=== PATIENT | female | born 1955 | race Caucasian/White ===

== ENCOUNTER → 2016-06-29 | Outpatient (CLI) | payer MEDICAID ==
[2016-06-29 09:39] LABS: CH 26.8; CHCM 31.4; HCT 33.6 % (34.0-46.0); HDW 2.95; HGB 10.4 gm/dL (11.4-16.0); Hypochromasia Slight; MCH 26.5 pg (25.0-35.0); MCHC 30.9 g/dL (31.0-37.0); MCV 85.7 fL (80.0-100.0); Mean Platelet Volume 8.7; RBC 3.92 m/uL (3.80-5.40); RDW 15.4 % (11.5-15.5); WBC 3.8 k/uL (3.8-10.6)
[2016-06-29 11:03] LABS: ALT 63 U/L (9-52); AST 49 U/L (14-36); Alkaline Phosphatase 192 U/L (38-126); Anion Gap 12 mmol/L; Blood Urea Nitrogen 19 mg/dL (7-17); Calcium 9.4 mg/dL (8.4-10.2); Carbon Dioxide 27 mmol/L (22-30); Chloride 106 mmol/L (98-107); Glucose 76 mg/dL (74-99); Non-African American GFR(MDRD) >60 (>60 ml/min/1.73 sqM); Potassium 4.2 mmol/L (3.5-5.1); Sodium 145 mmol/L (137-145); Total Bilirubin 0.6 mg/dL (0.2-1.3); Total Protein 8.1 g/dL (6.3-8.2)
== END | disposition home or self-care (01) ==
LOC: LABWHC1 09:17
PROVIDERS: ATTEND Physician Assistant
DX: K74.60 Unspecified cirrhosis of liver (principal); D64.9 Anemia, unspecified; R53.83 Other fatigue
CPT/HCPCS: 36415; 80053; 84439; 84443; 85027

== ENCOUNTER → 2016-09-29 | Outpatient (CLI) | payer MEDICAID ==
[2016-09-29 11:30] LABS: CH 27.7; CHCM 30.9; HCT 38.2 % (34.0-46.0); HDW 2.89; HGB 11.7 gm/dL (11.4-16.0); Hypochromasia Moderate; MCH 27.6 pg (25.0-35.0); MCHC 30.7 g/dL (31.0-37.0); Mean Platelet Volume 7.5; RBC 4.25 m/uL (3.80-5.40); RDW 15.4 % (11.5-15.5)
[2016-09-29 11:45] LABS: INR 1.2 (<1.1); Prothrombin Time 11.7 sec (9.0-12.0)
[2016-09-29 12:01] LABS: ALT 74 U/L (9-52); AST 77 U/L (14-36); Alkaline Phosphatase 259 U/L (38-126); Anion Gap 14 mmol/L; Blood Urea Nitrogen 16 mg/dL (7-17); Calcium 9.8 mg/dL (8.4-10.2); Carbon Dioxide 22 mmol/L (22-30); Chloride 105 mmol/L (98-107); Glucose 114 mg/dL (74-99); Non-African American GFR(MDRD) 50 (>60 ml/min/1.73 sqM); Potassium 4.5 mmol/L (3.5-5.1); Sodium 141 mmol/L (137-145); Total Bilirubin 1.2 mg/dL (0.2-1.3)
== END | disposition home or self-care (01) ==
LOC: LABWHC1 10:35
PROVIDERS: ATTEND Internal Medicine Gastroenterology
DX: K74.60 Unspecified cirrhosis of liver (principal)
CPT/HCPCS: 36415; 80053; 82105; 85027; 85610

== ENCOUNTER 2016-11-06 07:36 | Day surgery (SDC) | payer MEDICAID ==
[2016-11-02 11:17] VITALS: BMI 30.5
[~2016-11-06 07:36] MED LIST: LACTATED RINGERS 1,000 ML IV SCH
[2016-11-06] MEDS: FLURBIPROFEN 0.03% OPHTH DROPS 2.5 ML BTL OP ONE ×4 (08:00→08:33)
[2016-11-06 08:13] VITALS: TEMP 97.7
[2016-11-06] MEDS: PHENYLEPHRINE 10% OPHTH DROPS 5 ML BTL OP ONE ×3 (08:17→08:36)
[2016-11-06] MEDS: CYCLOPENTOLATE 1% OPHTH SOLN 2 ML BTL OP ONE ×3 (08:21→08:39)
[2016-11-06] MEDS ORDERED: PROPOFOL 10 MG/ML 20 ML VIAL IV ONE (09:03)
[2016-11-06] MEDS ORDERED: EPINEPHrine (PF) 0.5 ML in BALANCED SALT IRRIG SOLN COMB2 500 ML IRRIGATION ONE ×4 (09:08)
[2016-11-06] MEDS ORDERED: BALANCED SALT IRRIG SOLN COMB2 15 ML IRRIG.SOLN IRRIGATION ONE (09:08)
[2016-11-06] MEDS ORDERED: HYALURONATE SODIUM INTRAOCULAR 1 EACH SYRINGE (10MG/ML) INTRAOCULA ONE ×2 (09:08)
--- NOTE | 2016-11-06 09:28 | P.OP ---
Date of Procedure: 11/06/16 Preoperative Diagnosis: Postoperative Diagnosis: Procedure(s) Performed: PREOPERATIVE DIAGNOSIS: Cataract, right eye. POSTOPERATIVE DIAGNOSIS: Cataract, right eye. OPERATION: Phacoemulsification cataract, right eye. DESCRIPTION OF PROCEDURE: The patient was taken to the preoperative holding area. Intravenous Propofol was given so as to bring about adequate sedation. The following mixture was given for local anesthesia: 5 mL of 2% lidocaine, 5 mL of 0.75% Marcaine, and 1 mL of Wydase. Approximately 4 mL was injected in the retrobulbar space of the surgical eye. Additional 1 mL was then directed to the temporal area of the surgical eye. This was performed to allow adequate neurological block of the facial muscles. The patient was revived and then taken into the operative room. The patient was prepped and draped in the usual sterile manner for the operative eye. A lid speculum was put into position. The conjunctiva was resected back from the limbus in the 12 o'clock position. Bleeding was controlled with electrocautery. A #69 blade was then used and a half-thickness scleral incision approximately 1-mm posterior to the limbus was made on bare sclera. This was shelved in the clear cornea using a crescent knife. Next a 15-degree blade was used to make a stab incision at the 3 o' clock position at the corneolimbal interface. Keratome blade was then used and the superior wound was extended into the anterior chamber. Viscoelastic was injected into the anterior chamber and to maintain its form. Next, a cystotome was used and a continuous anterior capsulotomy was made without difficulty. Hydrodissection using a blunt cannula and BSS was performed. Phaco probe was then employed and a groove extending from 12 to 6 o'clock in the lens was created. A Freddie wand was used through the stab incision so as to perform a divide and conquer technique. Next an irrigation aspiration probe was utilized and any residual cortex was removed from the eye. Again, viscoelastic was injected into the anterior chamber. An Arnie posterior chamber lens implant was placed in the cartridge and injected into the anterior chamber without difficulty. The HighTower Advisorsey hook was utilized to spin the lens into position and this was again performed without any difficulty. The irrigation and aspiration probe was again employed and any residual viscoelastic was removed from the eye. Then BSS was injected into the limbal stab incision and the anterior chamber re-inflated. The conjunctiva was reapproximated using electrocautery. One drop of 0.25% Timoptic was placed over the corneal along with TobraDex ophthalmic ointment. Two sterile patches and a Siu eye shield were taped into position. The patient was transported to the recovery room in stable condition. Implants: Pathology: none sent Condition: stable Disposition: same day Indications for Procedure: Operative Findings: Description of Procedure:
[2016-11-06 09:32] VITALS: RESP 18
[2016-11-06 09:48] VITALS: BP 148/78; PULSE 61
[2016-11-06] MEDS ORDERED: TIMOLOL 0.5% OPHTH SOLN (PF) 0.2 ML DROPERETTE OP ONE (23:00)
[2016-11-06] MEDS ORDERED: GENTAMICIN/PREDNISOL AC OPHTH OINT 3.5GM OPHTHALMIC ONE (23:00)
[2016-11-06] MEDS ORDERED: BUPIVACAINE (PF) 0.75% 5 ML, LIDOCAINE 4% (PF) 5 ML, HYALURONIDASE, HUMAN RECOMB 150 UNIT MISCELLANE ONE ×3 (23:00)
== END 2016-11-06 10:22 | disposition home or self-care (01) ==
LOC: OR 07:36
PROVIDERS: ATTEND Ophthalmology
DX: H25.11 Age-related nuclear cataract, right eye (principal); I10 Essential (primary) hypertension; M79.7 Fibromyalgia; K21.9 Gastro-esophageal reflux disease without esophagitis; G47.33 Obstructive sleep apnea (adult) (pediatric); Z88.8 Allergy status to other drugs, medicaments and biological substances; Z79.899 Other long term (current) drug therapy
CPT/HCPCS: 66984; V2632; J2001; J3470; J0171; J2704

== ENCOUNTER 2016-12-04 11:39 | Day surgery (SDC) | payer MEDICAID ==
[2016-11-30 15:58] VITALS: BMI 30.9
[~2016-12-04 11:39] MED LIST changes: +LIDOCAINE 1% 20 ML VIAL (10MG/ML) FOR IV START INTRADERMA PRN
[2016-12-04] MEDS: CYCLOPENTOLATE 1% OPHTH SOLN 2 ML BTL OP ONE ×3 (11:55→12:13)
[2016-12-04] MEDS: FLURBIPROFEN 0.03% OPHTH DROPS 2.5 ML BTL OP ONE ×3 (11:58→12:16)
[2016-12-04] MEDS: PHENYLEPHRINE 10% OPHTH DROPS 5 ML BTL OP ONE ×3 (12:01→12:19)
[2016-12-04 12:02] VITALS: RESP 16; TEMP 97.1
[2016-12-04] MEDS ORDERED: LIDOCAINE 1% INJ 10MG/ML (20 ML MDV) ONE (12:38)
[2016-12-04] MEDS ORDERED: PROPOFOL 10 MG/ML 20 ML VIAL IV ONE (12:38)
[2016-12-04] MEDS ORDERED: EPINEPHrine (PF) 0.5 ML in BALANCED SALT IRRIG SOLN COMB2 500 ML IRRIGATION ONE (12:42)
[2016-12-04] MEDS ORDERED: BALANCED SALT IRRIG SOLN COMB2 15 ML IRRIG.SOLN INTRAOCULA ONE (12:42)
[2016-12-04] MEDS ORDERED: HYALURONATE SODIUM INTRAOCULAR 1 EACH SYRINGE (10MG/ML) INTRAOCULA ONE (12:43)
[2016-12-04] MEDS ORDERED: TIMOLOL 0.5% OPHTH SOLN (PF) 0.2 ML DROPERETTE LEFT EYE ONE (12:43)
--- NOTE | 2016-12-04 12:57 | P.OP ---
Date of Procedure: 12/04/16 Preoperative Diagnosis: Postoperative Diagnosis: Procedure(s) Performed: PREOPERATIVE DIAGNOSIS: Cataract, left eye. POSTOPERATIVE DIAGNOSIS: Cataract, left eye. OPERATION: Phacoemulsification cataract, left eye. DESCRIPTION OF PROCEDURE: The patient was taken to the preoperative holding area. Intravenous Propofol was given so as to bring about adequate sedation. The following mixture was given for local anesthesia: 5 mL of 2% lidocaine, 5 mL of 0.75% Marcaine, and 1 mL of Wydase. Approximately 4 mL was injected in the retrobulbar space of the surgical eye. Additional 1 mL was then directed to the temporal area of the surgical eye. This was performed to allow adequate neurological block of the facial muscles. The patient was revived and then taken into the operative room. The patient was prepped and draped in the usual sterile manner for the operative eye. A lid speculum was put into position. The conjunctiva was resected back from the limbus in the 12 o'clock position. Bleeding was controlled with electrocautery. A #69 blade was then used and a half-thickness scleral incision approximately 1-mm posterior to the limbus was made on bare sclera. This was shelved in the clear cornea using a crescent knife. Next a 15-degree blade was used to make a stab incision at the 3 o' clock position at the corneolimbal interface. Keratome blade was then used and the superior wound was extended into the anterior chamber. Viscoelastic was injected into the anterior chamber and to maintain its form. Next, a cystotome was used and a continuous anterior capsulotomy was made without difficulty. Hydrodissection using a blunt cannula and BSS was performed. Phaco probe was then employed and a groove extending from 12 to 6 o'clock in the lens was created. A Freddie wand was used through the stab incision so as to perform a divide and conquer technique. Next an irrigation aspiration probe was utilized and any residual cortex was removed from the eye. Again, viscoelastic was injected into the anterior chamber. An Arnie posterior chamber lens implant was placed in the cartridge and injected into the anterior chamber without difficulty. The Recyclebankey hook was utilized to spin the lens into position and this was again performed without any difficulty. The irrigation and aspiration probe was again employed and any residual viscoelastic was removed from the eye. Then BSS was injected into the limbal stab incision and the anterior chamber re-inflated. The conjunctiva was reapproximated using electrocautery. One drop of 0.25% Timoptic was placed over the corneal along with TobraDex ophthalmic ointment. Two sterile patches and a Siu eye shield were taped into position. The patient was transported to the recovery room in stable condition. Implants: Pathology: none sent Condition: stable Disposition: same day Indications for Procedure: Operative Findings: Description of Procedure:
[2016-12-04 13:15] VITALS: BP 149/71; PULSE 64
[2016-12-04] MEDS ORDERED: TIMOLOL 0.5% OPHTH SOLN (PF) 0.2 ML DROPERETTE OP ONE (23:00)
[2016-12-04] MEDS ORDERED: GENTAMICIN/PREDNISOL AC OPHTH OINT 3.5GM OPHTHALMIC ONE (23:00)
[2016-12-04] MEDS ORDERED: BUPIVACAINE (PF) 0.75% 5 ML, LIDOCAINE 4% (PF) 5 ML, HYALURONIDASE, HUMAN RECOMB 150 UNIT MISCELLANE ONE ×3 (23:00)
== END 2016-12-04 13:37 | disposition home or self-care (01) ==
LOC: OR 11:39
PROVIDERS: ATTEND Ophthalmology
DX: H26.9 Unspecified cataract (principal); I10 Essential (primary) hypertension; K21.9 Gastro-esophageal reflux disease without esophagitis; Z79.899 Other long term (current) drug therapy
CPT/HCPCS: 66984; V2632; J2001 ×2; J3470; J0171; J2704

== ENCOUNTER → 2017-05-07 | Outpatient (CLI) | payer MEDICAID ==
--- NOTE | 2017-05-07 09:18 | US ---
EXAMINATION TYPE: US abdomen complete DATE OF EXAM: 05/07/2017 COMPARISON: CT abdomen June 07, 2015 CLINICAL HISTORY: R10.9 ABD PAIN. Generalized abd pain. GB removed x 5 years ago EXAM MEASUREMENTS: Liver Length: 14.7 cm CBD: 0.8 cm CHD: 0.8 cm Spleen: 14.5 cm Right Kidney: 10.8 x 4.7 x 4.7 cm Left Kidney: 10.5 x 4.1 x 4.3 cm Pancreas: Appears echogenic Liver: wnl Gallbladder: Surgically absent Evidence for sonographic Dowling's sign: neg CBD: wnl CHD: wnl Spleen: Appears enlarged Right Kidney: wnl Left Kidney: wnl Upper IVC: wnl Abd Aorta: No AAA seen The visualized liver is heterogeneous. The intrahepatic portion of the IVC and proximal abdominal ao rta are within normal limits. There is no evidence of cholelithiasis. Common bile duct is unremarka ble. The visualized portions of the pancreas are homogenous. The spleen is enlarged. Kidneys are s ymmetric and free of hydronephrosis. No renal lesions are seen. IMPRESSION: Persistent heterogeneous liver and splenomegaly. Underlying hepatocellular disease is not excluded. Correlate with biopsy results February 28, 2016. No suspicious new finding is seen to acco unt for patient's symptoms of pain. No ascites is evident.
== END | disposition home or self-care (01) ==
LOC: RADUSWWP 07:25
PROVIDERS: ATTEND Family Medicine
DX: K76.89 Other specified diseases of liver (principal); R16.1 Splenomegaly, not elsewhere classified; R10.9 Unspecified abdominal pain
CPT/HCPCS: 76700

== ENCOUNTER → 2017-07-12 | Outpatient (CLI) | payer MEDICAID ==
--- NOTE | 2017-07-12 10:22 | XR ---
EXAMINATION TYPE: XR cervical spine limited DATE OF EXAM: 07/12/2017 COMPARISON: NONE HISTORY: Pain TECHNIQUE: 3 views submitted FINDINGS: There is multilevel severe degenerative disc disease primarily involving levels C4-C7. Mult ilevel facet arthropathy noted. There is a 2 mm retrolisthesis C5 on C6. Prevertebral soft tissue structures within normal limits. Odontoid intact. IMPRESSION: 1. Multilevel severe degenerative disc disease with retrolisthesis listhesis of C5 and C6. Sella turc ica also appears somewhat prominent in size. Recommend MRI cervical spine.
--- NOTE | 2017-07-12 10:35 | US ---
EXAMINATION TYPE: US carotid duplex BILAT DATE OF EXAM: 07/12/2017 COMPARISON: NONE CLINICAL HISTORY: R09.89 Carotid Bruit. Dizziness EXAM MEASUREMENTS: RIGHT: Peak Systolic Velocity (PSV) cm/sec ----- Right CCA: 91.5 ----- Right ICA: 158.9 ----- Right ECA: 141.2 ICA/CCA ratio: 1.7 RIGHT: End Diastole cm/sec ----- Right CCA: 22.0 ----- Right ICA: 32.7 ----- Right ECA: 20.9 LEFT: Peak Systolic Velocity (PSV) cm/sec ----- Left CCA: 85.0 ----- Left ICA: 127.1 ----- Left ECA: 104.4 ICA/CCA ratio: 1.5 LEFT: End Diastole cm/sec ----- Left CCA: 22.0 ----- Left ICA: 36.5 ----- Left ECA: 20.4 VERTEBRALS (direction of flow): Right Vertebral: Antegrade Left Vertebral: Antegrade Rhythm: Normal Tortuous vessels bilaterally. Mild amount of plaque visualized bilaterally. Elevated velocities visu alized in the right ICA, right ECA, and left distal ICA. Some tortuosity noted in the proximal graphic design intern al carotid artery on the right. Grayscale, color Doppler, spectral Doppler imaging performed of the carotid arteries. Waveform analys is does not show significant stenosis of the proximal internal carotid arteries bilaterally by Dopple r criteria. IMPRESSION: Mild elevation of the peak systolic velocity within the proximal internal carotid artery on the right without elevated internal carotid to common carotid artery ratio may be due to tortuosi ty rather than hemodynamic significant stenosis on Doppler duplex, an indirect measurement of carotid stenosis. Carotid CTA or MRA could be performed for additional evaluation. Criteria for Assigning % of Stenosis / Diameter reduction (Estimation based on the indirect measurements of the internal carotid artery velocities (ICA PSV). 1. Normal (no stenosis)=ICA PSV < 125 cm/s: ratio < 2.0: ICA EDV<40 cm/s. 2. Less than 50% stenosis=ICA PSV < 125 cm/s: ratio < 2.0: ICA EDV<40 cm/s. 3. 50 to 69% stenosis=ICA PSV of 125 to 230 cm/s: ration 2.0 ? 4.0: ICA EDV 40-100 cm/s. 4. Greater than 70% stenosis to near occlusion= ICA PSV > 230 cm/s: ratio > 4.0: ICA EDV > 100 cm/s. 5. Near occlusion= ICA PSV velocities may be low or undetectable: variable ratio and ICA EDV. 6. Total occlusion=unable to detect flow.
== END | disposition home or self-care (01) ==
LOC: RADUSWWP 09:00
PROVIDERS: ATTEND Family Medicine
DX: M50.320 Other cervical disc degeneration, mid-cervical region, unspecified level (principal); M43.12 Spondylolisthesis, cervical region; R09.89 Other specified symptoms and signs involving the circulatory and respiratory systems
CPT/HCPCS: 72040; 93880

== ENCOUNTER → 2017-07-12 | Outpatient (CLI) | payer MEDICAID ==
[2017-07-12 10:06] LABS: HCT 33.3 % (34.0-46.0); HGB 10.8 gm/dL (11.4-16.0); Hypochromasia Slight; MCH 28.5 pg (25.0-35.0); MCHC 32.4 g/dL (31.0-37.0); MCV 88.1 fL (80.0-100.0); Mean Platelet Volume 9.3; Platelet Count 158 k/uL (150-450); RBC 3.78 m/uL (3.80-5.40); RDW 15.5 % (11.5-15.5); WBC 5.3 k/uL (3.8-10.6)
[2017-07-12 10:28] LABS: ALT 68 U/L (9-52); AST 57 U/L (14-36); Albumin 3.6 g/dL (3.5-5.0); Alkaline Phosphatase 251 U/L (38-126); Anion Gap 9 mmol/L; Blood Urea Nitrogen 16 mg/dL (7-17); Calcium 9.3 mg/dL (8.4-10.2); Carbon Dioxide 29 mmol/L (22-30); Chloride 102 mmol/L (98-107); Glucose 171 mg/dL (74-99); Potassium 4.4 mmol/L (3.5-5.1); Sodium 140 mmol/L (137-145); Total Protein 7.9 g/dL (6.3-8.2)
[2017-07-12 10:35] LABS: INR 1.2 (<1.2); Prothrombin Time 11.5 sec (9.0-12.0)
== END | disposition home or self-care (01) ==
LOC: LABWHC1 09:41
PROVIDERS: ATTEND Internal Medicine Gastroenterology
DX: K74.60 Unspecified cirrhosis of liver (principal)
CPT/HCPCS: 36415; 80053; 82105; 85027; 85610

== ENCOUNTER → 2017-07-26 | Outpatient (CLI) | payer MEDICAID ==
--- NOTE | 2017-07-29 10:07 | CT ---
EXAMINATION TYPE: CT angio neck DATE OF EXAM: 07/26/2017 COMPARISON: NONE HISTORY: Carotid bruit. CT DLP: 281.1 mGycm CONTRAST: CTA cervical carotids is performed and with IV Contrast, patient injected with 65ml mL of Omnipaque 3 50. Contrast CTA of the cervical carotids was performed 3-D reconstruction imaging obtained at a separate workstation. Right carotid system: Mild plaque is seen of the right common carotid artery. There is mild plaque a lso noted at the carotid bulb. No hemodynamically significant stenosis is present. ECA is patent. Ri ght vertebral artery appears unremarkable. Left carotid system: Mild plaque is seen of the left common carotid artery. There is mild plaque als o noted at the carotid bulb. No hemodynamically significant stenosis is present. ECA is patent. Lef t vertebral artery appears unremarkable. IMPRESSION: 1. No hemodynamically significant stenosis is present.
== END | disposition home or self-care (01) ==
LOC: RADCTMAIN 16:17
PROVIDERS: ATTEND Physician Assistant
DX: R09.89 Other specified symptoms and signs involving the circulatory and respiratory systems (principal)
CPT/HCPCS: 70498; Q9967

== ENCOUNTER → 2017-08-09 | Outpatient (CLI) | payer MEDICAID ==
[2017-08-09 10:03] LABS: HCT 33.9 % (34.0-46.0); HGB 10.9 gm/dL (11.4-16.0); MCH 29.2 pg (25.0-35.0); MCHC 32.2 g/dL (31.0-37.0); MCV 90.7 fL (80.0-100.0); Mean Platelet Volume 7.5; Platelet Count 159 k/uL (150-450); RBC 3.73 m/uL (3.80-5.40); RDW 14.6 % (11.5-15.5); WBC 4.8 k/uL (3.8-10.6)
== END | disposition home or self-care (01) ==
LOC: LABWHC1 08:46
PROVIDERS: ATTEND Physician Assistant
DX: D64.9 Anemia, unspecified (principal)
CPT/HCPCS: 36415; 85027

== ENCOUNTER → 2017-08-09 | Outpatient (CLI) | payer MEDICAID ==
--- NOTE | 2017-08-09 09:34 | US ---
EXAMINATION TYPE: US liver DATE OF EXAM: 08/09/2017 COMPARISON: 05/07/2017 CLINICAL HISTORY: 61-year-old female K74.60 CIRRHOSIS OF LIVER; gallbladder removed; liver BX TECHNIQUE: Multiple sonographic images of the right upper quadrant are obtained. FINDINGS: Liver Length: 15.1 cm Gallbladder: surgically removed CBD: 8.5mm Right Kidney: 10.2 x 5.7 x 3.8 cm Pancreas: Suboptimal visualization of the pancreatic head and tail secondary to shadowing from bowel gas. Visualized portions show no gross abnormality. Liver: Heterogeneous echotexture. There is nodular, cirrhotic contour of the liver. No focal lesion i s identified. Gallbladder: surgically absent Evidence for sonographic Dowling's sign: No CBD: internal echoes are noted throughout visualized course into pancreatic head; the bile duct usama kathya is relatively stable from 05/07/2017 and within an acceptable range status post cholecystectomy. Right Kidney: No hydronephrosis IMPRESSION: 1. Cirrhotic morphology of the liver. No ultrasound evidence for hepatoma. Consider MRI screening for hepatoma as clinically indicated. 2. Mildly dilated bile duct within acceptable limits postcholecystectomy status. The caliber is relat ively stable from 05/07/2017. Internal echoes within the bile duct could represent sludge. Small calc noe are possible.
== END ==
LOC: RADUSWWP 08:02
PROVIDERS: ATTEND Internal Medicine Gastroenterology
DX: K74.60 Unspecified cirrhosis of liver (principal); K83.8 Other specified diseases of biliary tract
CPT/HCPCS: 76705

== ENCOUNTER → 2017-09-06 | Outpatient (CLI) | payer MEDICAID ==
--- NOTE | 2017-09-06 11:47 | XR ---
EXAMINATION TYPE: XR chest 2V DATE OF EXAM: 09/06/2017 COMPARISON: 10/09/2013 TECHNIQUE: PA and lateral views submitted. HISTORY: Difficulty breathing FINDINGS: The lungs are clear and there is no pneumothorax, pleural effusion, or focal pneumonia. No overt fa ilure. There is convex margin to the right paratracheal region. Degenerative change of the spine. Hortencia gical clips in the abdomen. IMPRESSION: 1. Convex margin the right paratracheal region. Recommend CT chest to assess for adenopathy, ectatic vasculature or mass..
[2017-09-06 12:08] LABS: Basophils # (A) 0.1 k/uL (0-0.2); Basophils % (A) 1 %; Eosinophils # (A) 0.2 k/uL (0-0.7); Eosinophils % (A) 2 %; HCT 23.3 % (34.0-46.0); Hypochromasia Marked; Lymphocytes # (A) 1.4 k/uL (1.0-4.8); Lymphocytes % (A) 17 %; MCH 27.5 pg (25.0-35.0); MCHC 31.4 g/dL (31.0-37.0); MCV 87.5 fL (80.0-100.0); Mean Platelet Volume 8.2; Monocytes # (A) 0.6 k/uL (0-1.0); Monocytes % (A) 7 %; Neutrophils # (A) 5.7 k/uL (1.3-7.7); Neutrophils % (A) 69 %; Platelet Count 270 k/uL (150-450); Poikilocytosis Marked; RBC 2.67 m/uL (3.80-5.40); RDW 15.5 % (11.5-15.5); WBC 8.2 k/uL (3.8-10.6)
[2017-09-06 12:20] LABS: ALT 46 U/L (9-52); AST 50 U/L (14-36); Albumin 3.4 g/dL (3.5-5.0); Alkaline Phosphatase 246 U/L (38-126); Anion Gap 9 mmol/L; Blood Urea Nitrogen 9 mg/dL (7-17); Calcium 9.1 mg/dL (8.4-10.2); Carbon Dioxide 26 mmol/L (22-30); Chloride 105 mmol/L (98-107); Glucose 72 mg/dL (74-99); Potassium 4.3 mmol/L (3.5-5.1); Sodium 140 mmol/L (137-145); Total Bilirubin 0.6 mg/dL (0.2-1.3); Total Protein 7.6 g/dL (6.3-8.2)
[2017-09-06 12:27] LABS: HGB 7.3 gm/dL (11.4-16.0)
== END | disposition home or self-care (01) ==
LOC: RADXRMAIN 11:22
PROVIDERS: ATTEND Family Medicine
DX: J90 Pleural effusion, not elsewhere classified (principal); R60.0 Localized edema; D64.9 Anemia, unspecified; K74.60 Unspecified cirrhosis of liver
CPT/HCPCS: 36415; 71046; 80053; 83880; 85025

== ENCOUNTER → 2017-09-16 | Outpatient (CLI) | payer MEDICAID ==
[2017-09-16 17:55] LABS: Anisocytosis Slight; HCT 23.9 % (34.0-46.0); HGB 7.2 gm/dL (11.4-16.0); Hypochromasia Marked; MCH 25.4 pg (25.0-35.0); MCHC 30.3 g/dL (31.0-37.0); MCV 83.8 fL (80.0-100.0); Mean Platelet Volume 9.4; Poikilocytosis Marked; RBC 2.85 m/uL (3.80-5.40); RDW 16.1 % (11.5-15.5)
[2017-09-16 17:56] LABS: Platelet Count 131 k/uL (150-450)
[2017-09-16 17:58] LABS: ALT 44 U/L (9-52); AST 40 U/L (14-36); Albumin 3.4 g/dL (3.5-5.0); Alkaline Phosphatase 237 U/L (38-126); Anion Gap 13 mmol/L; Blood Urea Nitrogen 16 mg/dL (7-17); Calcium 8.8 mg/dL (8.4-10.2); Carbon Dioxide 26 mmol/L (22-30); Chloride 103 mmol/L (98-107); Glucose 87 mg/dL (74-99); Potassium 3.5 mmol/L (3.5-5.1); Sodium 142 mmol/L (137-145); Total Bilirubin 0.5 mg/dL (0.2-1.3); Total Protein 7.9 g/dL (6.3-8.2)
[2017-09-17 00:56] LABS: Iron Saturation 3.1 (12.00-45.00)
== END | disposition home or self-care (01) ==
LOC: LABWHC1 17:27
PROVIDERS: ATTEND Physician Assistant
DX: K74.60 Unspecified cirrhosis of liver (principal); D64.9 Anemia, unspecified
CPT/HCPCS: 36415; 80053; 83540; 83550; 85027

== ENCOUNTER → 2017-10-01 | Outpatient (CLI) | payer MEDICAID ==
[2017-10-01 12:48] LABS: Anisocytosis Moderate; HGB 7.4 gm/dL (11.4-16.0); Hypochromasia Marked; MCH 26.3 pg (25.0-35.0); MCHC 29.8 g/dL (31.0-37.0); MCV 88.4 fL (80.0-100.0); Mean Platelet Volume 8.3; Platelet Count 155 k/uL (150-450); Poikilocytosis Moderate; RBC 2.83 m/uL (3.80-5.40); RDW 20.6 % (11.5-15.5); WBC 4.1 k/uL (3.8-10.6)
--- NOTE | 2017-10-01 14:03 | US ---
EXAMINATION TYPE: US transvaginal DATE OF EXAM: 10/01/2017 COMPARISON: MRI CLINICAL HISTORY: R60.0 Lower extremity edema. Pt having bilat leg edema, bloating, anemia/ Pt has li elaine disease, hysterectomy, not on hormones TECHNIQUE: Transvaginal (TV). EXAM MEASUREMENTS: Uterus: Surgically absent Endometrial Stripe: Surgically absent Right Ovary: Unable to visualize Left Ovary: Unable to visualize 1. Uterus: Surgically absent 2. Endometrium: Surgically absent 3. Right Ovary: Obscured by overlying bowel gas, and free fluid 4. Left Ovary: Obscured by overlying bowel gas, and free fluid 5. Bilateral Adnexa: Free fluid 6. Posterior cul-de-sac: Free fluid Unable to identify ovaries, free fluid within pelvis IMPRESSION: Nonvisualization of reproductive organs with exception of vaginal cuff. There is ascites.
--- NOTE | 2017-10-01 19:07 | ECHOF ---
Referral Reason:R60.0 Lower extremity edema MEASUREMENTS -------- HEIGHT: 162.6 cm WEIGHT: 90.3 kg BP: 147/78 RVIDd: 2.9 cm (< 3.3) IVSd: 1.1 cm (0.6 - 1.1) LVIDd: 4.7 cm (3.9 - 5.3) LVPWd: 1.2 cm (0.6 - 1.1) IVSs: 1.6 cm LVIDs: 3.0 cm LVPWs: 1.3 cm LA Diam: 3.6 cm (2.7 - 3.8) LAESV Index (A-L): 38.01 ml/m Ao Diam: 2.8 cm (2.0 - 3.7) AV Cusp: 2.2 cm (1.5 - 2.6) MV EXCURSION: 20.347 mm (> 18.000) MV EF SLOPE: 108 mm/s (70 - 150) EPSS: 0.5 cm MV E Odilon: 1.35 m/s MV DecT: 180 ms MV A Odilon: 0.72 m/s MV E/A Ratio: 1.88 AV maxP.91 mmHg AV meanP.16 mmHg RAP: 5.00 mmHg RVSP: 27.02 mmHg FINDINGS -------- Sinus rhythm. This was a technically good study. The left ventricular size is normal. There is borderline concentric left ventricular hypertrophy. Overall left ventricular systolic function is normal with, an EF between 60 - 65 %. The right ventricle is normal in size. LA is moderately dilated 34-39 ml/m2 The right atrium is normal in size. The aortic valve is trileaflet and appears structurally normal. The mitral valve is normal. Mild mitral regurgitation is present. Trace tricuspid regurgitation present. Right ventricular systolic pressure is normal at < 35 mmHg. There is no pulmonic regurgitation present. The aortic root size is normal. Normal inferior vena cava with normal inspiratory collapse consistent with estimated right atrial pre ssure of 5 mmHg. There is no pericardial effusion. CONCLUSIONS -------- 1. Sinus rhythm. 2. This was a technically good study. 3. The left ventricular size is normal. 4. There is borderline concentric left ventricular hypertrophy. 5. Overall left ventricular systolic function is normal with, an EF between 60 - 65 %. 6. The right ventricle is normal in size. 7. LA is moderately dilated 34-39 ml/m2 8. The right atrium is normal in size. 9. The aortic valve is trileaflet and appears structurally normal. 10. The mitral valve is normal. 11. Mild mitral regurgitation is present. 12. Trace tricuspid regurgitation present. 13. Right ventricular systolic pressure is normal at < 35 mmHg. 14. There is no pulmonic regurgitation present. 15. The aortic root size is normal. 16. Normal inferior vena cava with normal inspiratory collapse consistent with estimated right atrial pressure of 5 mmHg. 17. There is no pericardial effusion. [employer]: Leonora Marie RDCS
== END | disposition home or self-care (01) ==
LOC: RADECHMAIN 11:08
PROVIDERS: ATTEND Family Medicine
DX: I08.1 Rheumatic disorders of both mitral and tricuspid valves (principal); R18.8 Other ascites; D64.9 Anemia, unspecified
CPT/HCPCS: 36415; 76830; 85027; 93306

== ENCOUNTER → 2017-11-01 | Outpatient (CLI) | payer MEDICAID ==
[2017-11-01 09:15] LABS: Anisocytosis Slight; HCT 32.3 % (34.0-46.0); Hypochromasia Marked; MCH 25.2 pg (25.0-35.0); MCV 84.1 fL (80.0-100.0); Mean Platelet Volume 8.6; Microcytosis Slight; Platelet Count 186 k/uL (150-450); RBC 3.84 m/uL (3.80-5.40); RDW 18.2 % (11.5-15.5); WBC 5.1 k/uL (3.8-10.6)
[2017-11-01 09:21] LABS: HGB 9.7 gm/dL (11.4-16.0)
[2017-11-01 09:43] LABS: Albumin 3.6 g/dL (3.5-5.0); Calcium 9.6 mg/dL (8.4-10.2); Potassium 4.4 mmol/L (3.5-5.1); Total Protein 8.4 g/dL (6.3-8.2)
[2017-11-01 16:27] LABS: Iron Saturation 6.75 (12.00-45.00)
== END | disposition home or self-care (01) ==
LOC: LABWHC1 08:35
PROVIDERS: ATTEND Physician Assistant
DX: E78.5 Hyperlipidemia, unspecified (principal); I10 Essential (primary) hypertension; R53.83 Other fatigue; D64.9 Anemia, unspecified; K74.60 Unspecified cirrhosis of liver
CPT/HCPCS: 36415; 80053; 80061; 82728; 83540; 83550; 84443; 85027

== ENCOUNTER → 2017-11-27 | Outpatient (CLI) | payer MEDICAID ==
[2017-11-27 17:41] LABS: Anisocytosis Slight; HCT 26.7 % (34.0-46.0); HGB 8.3 gm/dL (11.4-16.0); Hypochromasia Marked; MCH 25.8 pg (25.0-35.0); MCV 83.2 fL (80.0-100.0); Microcytosis Slight; Platelet Count 180 k/uL (150-450); WBC 5.9 k/uL (3.8-10.6)
[2017-11-27 17:55] LABS: Albumin 3.6 g/dL (3.5-5.0); Calcium 8.7 mg/dL (8.4-10.2); Potassium 3.8 mmol/L (3.5-5.1); Total Bilirubin 0.7 mg/dL (0.2-1.3); Total Protein 7.8 g/dL (6.3-8.2)
[2017-11-28 02:29] LABS: Iron Saturation 4.55 (12.00-45.00)
== END | disposition home or self-care (01) ==
LOC: LABWHC1 17:18
PROVIDERS: ATTEND Physician Assistant
DX: K74.60 Unspecified cirrhosis of liver (principal); D64.9 Anemia, unspecified
CPT/HCPCS: 36415; 80053; 82977; 83540; 83550; 84443; 85027

== ENCOUNTER → 2017-12-27 | Outpatient (CLI) | payer MEDICAID ==
[2017-12-27 10:03] LABS: Anisocytosis Slight; HCT 29.9 % (34.0-46.0); Hypochromasia Marked; MCH 24.8 pg (25.0-35.0); MCV 82.7 fL (80.0-100.0); Mean Platelet Volume 8.5; Platelet Count 135 k/uL (150-450); RBC 3.61 m/uL (3.80-5.40); RDW 17.6 % (11.5-15.5); WBC 3.3 k/uL (3.8-10.6)
[2017-12-27 10:05] LABS: INR 1.2 (<1.2); Prothrombin Time 11.5 sec (9.0-12.0)
[2017-12-27 10:36] LABS: Albumin 3.4 g/dL (3.5-5.0); Potassium 4.2 mmol/L (3.5-5.1); Total Protein 8.1 g/dL (6.3-8.2)
== END | disposition home or self-care (01) ==
LOC: LABWHC1 09:31
PROVIDERS: ATTEND Internal Medicine Gastroenterology
DX: K74.60 Unspecified cirrhosis of liver (principal); D64.9 Anemia, unspecified; R53.83 Other fatigue
CPT/HCPCS: 36415; 80053; 80061; 82105; 82977; 83540; 83550; 84443; 85027; 85610

== ENCOUNTER 2018-01-06 15:55 | Emergency (ER) | payer MEDICAID ==
[2018-01-06 16:42] VITALS: RESP 18
[2018-01-06 18:08] LABS: Anisocytosis Slight; Basophils % (A) 1 %; Eosinophils # (A) 0.1 k/uL (0-0.7); Eosinophils % (A) 2 %; HCT 30.6 % (34.0-46.0); HGB 9.7 gm/dL (11.4-16.0); Hypochromasia Moderate; Lymphocytes # (A) 1.2 k/uL (1.0-4.8); Lymphocytes % (A) 18 %; MCH 25.6 pg (25.0-35.0); MCHC 31.7 g/dL (31.0-37.0); MCV 80.5 fL (80.0-100.0); Mean Platelet Volume 9.1; Microcytosis Slight; Monocytes # (A) 0.6 k/uL (0-1.0); Monocytes % (A) 8 %; Neutrophils # (A) 4.7 k/uL (1.3-7.7); Neutrophils % (A) 69 %; Platelet Count 166 k/uL (150-450); RDW 17.8 % (11.5-15.5); WBC 6.9 k/uL (3.8-10.6)
[2018-01-06 18:17] LABS: Albumin 3.3 g/dL (3.5-5.0); Calcium 8.6 mg/dL (8.4-10.2); Potassium 3.5 mmol/L (3.5-5.1); Total Bilirubin 2.2 mg/dL (0.2-1.3); Total Protein 7.7 g/dL (6.3-8.2)
[2018-01-06 18:20] LABS: INR 1.2 (<1.2); Partial Thromboplastin Time 26.1 sec (22.0-30.0); Prothrombin Time 11.4 sec (9.0-12.0)
[2018-01-06 18:23] LABS: Creatine Kinase 84 U/L (30-135)
[2018-01-06 18:36] LABS: Creatine Kinase MB 1.3 ng/mL (0.0-2.4); Troponin I <0.012 ng/mL (0.000-0.034)
--- NOTE | 2018-01-06 20:32 | ED ---
Weakness HPI - General Chief complaint: Weakness Stated complaint: Weakness/fell hit head Time Seen by Provider: 01/06/18 20:08 Source: patient, family, RN notes reviewed Mode of arrival: wheelchair Limitations: no limitations - History of Present Illness Initial comments: This is a 62-year-old female who presents to the emergency department with a chief complaint of falls. is at bedside and contributes to history. Patient states that for the past few months she has had progressive worsening of weakness and falls. Patient states that she has good days and bad days. She states that today she had 3 falls and hit her head each time. Patient states the first fall she was getting up off the toilet and fell down hitting the walk in shower. She states that she tried to get up and slipped and fell again. Then later on she bent over to pick something up and fell hitting her left bahai. Denies any loss of consciousness, nausea or vomiting, dizziness or severe headache. She denies blood thinner use. Patient's states that the symptoms have been discussed with patient's primary care provider however and no official diagnosis has been given. He states that she does have cirrhosis and anemia. She was referred to Dr. Bowman but they have yet to follow- up. He states that patient has been having progressive worsening of weakness and confusion. Currently, patient states that she has a mild headache. Denies fevers or chills, chest pain or shortness of breath, abdominal pain. - Related Data Home Medications Medication Instructions Recorded Confirmed FLUoxetine HCL [PROzac] 20 mg PO DAILY 02/13/16 01/06/18 buPROPion XL [Wellbutrin XL] 300 mg PO DAILY 02/13/16 01/06/18 DULoxetine HCL [Cymbalta] 60 mg PO HS 11/02/16 01/06/18 Gabapentin [Neurontin] 400 mg PO TID 11/02/16 01/06/18 Hydrochlorothiazide [Hydrodiuril] 25 mg PO DAILY 11/02/16 01/06/18 Multivitamins, Thera [Multivitamin 1 tab PO DAILY 11/02/16 01/06/18 (formulary)] Potassium Chloride [Klor-Con 10] 10 meq PO DAILY 11/02/16 01/06/18 Losartan Potassium 100 mg PO DAILY 11/30/16 01/06/18 ARIPiprazole [Abilify] 2 mg PO DAILY 05/15/17 01/06/18 Ergocalciferol [Vitamin D2] 50,000 unit PO HUFF 05/15/17 01/06/18 Lactulose [Constulose] 20 mg PO TID PRN 05/15/17 01/06/18 Primidone [Mysoline] 50 mg PO DAILY 05/15/17 01/06/18 HYDROcodone/APAP 10-325MG [[place] 1 tab PO DAILY PRN 01/06/18 01/06/18 10-325] Omeprazole [PriLOSEC] 20 mg PO DAILY 01/06/18 01/06/18 Propranolol HCl 20 mg PO BID 01/06/18 01/06/18 Allergies Allergy/AdvReac Type Severity Reaction Status Date / Time latex Allergy Severe Rash/Hives Verified 01/06/18 20:31 IGNACIO Inhibitors AdvReac Cough Verified 01/06/18 20:31 Review of Systems ROS Statement: Those systems with pertinent positive or pertinent negative responses have been documented in the HPI. ROS Other: All systems not noted in ROS Statement are negative. Past Medical History Past Medical History: Blood Disorder, Fibromyalgia, GERD/Reflux, Hypertension, Liver Disease, Osteoarthritis (OA), Rheumatoid Arthritis (RA), Skin Disorder, Sleep Apnea/CPAP/BIPAP Additional Past Medical History / Comment(s): herpes zoster, rosacea, fatty liver/cirrhosis, not using CPAP. Anemia d/t cirrhosis. Blood transfusion. BILATERAL KNEES TO FEET EDEMA. History of Any Multi-Drug Resistant Organisms: None Reported Past Surgical History: Cholecystectomy, Hysterectomy, Orthopedic Surgery Additional Past Surgical History / Comment(s): rectocele/cystocele repair, arthroscopy rt knee, CATARACT RIGHT EYE 11/06/16. Past Anesthesia/Blood Transfusion Reactions: Previous Problems w/ Anesthesia Additional Past Anesthesia/Blood Transfusion Reaction / Comment(s): SHE STATES "IT'S A MEDICINE THEY DON'T USE ANY MORE"-many yrs ago hard hard time coming out and. no problems with recent surgeries Past Psychological History: Depression Smoking Status: Former smoker Past Alcohol Use History: None Reported Past Drug Use History: None Reported - Past Family History Mother Family Medical History: No Reported History Father Family Medical History: COPD General Exam - General Exam Comments Initial Comments: General: Awake and alert, well-developed; in no apparent distress. Patient is drowsy. HEENT: Head atraumatic, normocephalic. Mild tenderness and swelling at the left bahai. No hematomas. Pupils are equal, round and reactive to light. Extraocular movements intact. Oropharynx moist without erythema or exudate. Neck: Supple. Normal ROM. Cardiovascular: Regular rate and rhythm. No murmurs, rubs or gallops. Chest symmetrical. Respiratory: Lungs clear to auscultation bilaterally. No wheezes, rales or rhonchi. Normal respiratory effort with no use of accessory muscles. Abdomen: Soft, non-tender, non-distended. No rigidity, rebound or guarding. Normal bowel sounds in all 4 quadrants. Musculoskeletal: Normal ROM, no tenderness, strength 5/5 bilateral upper and lower extremities. Skin: [place], warm and dry without rashes or lesions. Neurological: Alert and oriented x3. CN II-XII grossly intact. Speech is fluent and answers are appropriate. No focal neuro deficits. Romberg negative. Psychiatric: Normal mood and affect. No overt signs of depression or anxiety noted. Limitations: no limitations Course Vital Signs 01/06/18 01/06/18 16:36 20:55 Temperature 98.6 F 97.9 F Pulse Rate 74 69 Respiratory 18 18 Rate Blood Pressure 118/69 147/66 O2 Sat by Pulse 96 99 Oximetry EKG Findings - EKG Comments: EKG Findings:: 17:50:49. Normal sinus rhythm. Moderate voltage criteria for LVH, may be normal variant. Ventricular rate 67 bpm, [place] interval 154, QRS duration 100, QT/QTc 460/486 Medical Decision Making - Medical Decision Making This is a 62-year-old female with history of chronic liver cirrhosis who presented to the emergency department with chief complaint of falls and progressive weakness. Patient states that she has had chronic progressive weakness for the past few months. She states that today she had 3 falls and hit her head each time. A computed tomography scan of the brain and C-spine was obtained which revealed no acute abnormalities. CBC did reveal a hemoglobin of 9.7, however this is increased when compared to previous labs. CMP was unremarkable. Ammonia was slightly elevated at 49. UA revealed no acute abnormalities. Chest x-ray was normal. EKG revealed normal sinus rhythm. Findings were discussed with patient and at bedside. Discussed admission for weakness, however they refuse. Patient states she is comfortable being discharged home in all follow-up with her primary care physician within the next couple of days. Vital signs are stable and she is in no acute distress. She will be discharged home at this time. All questions were answered. This case was discussed with attending physician, Dr. Khan. - Lab Data Result diagrams: 01/06/18 17:50 01/06/18 17:50 Lab Results 01/06/18 01/06/18 01/06/18 Range/Units 17:50 17:50 17:50 WBC 6.9 (3.8-10.6) k/uL RBC 3.80 (3.80-5.40) m/uL Hgb 9.7 L (11.4-16.0) gm/dL Hct 30.6 L (34.0-46.0) % MCV 80.5 (80.0-100.0) fL MCH 25.6 (25.0-35.0) pg MCHC 31.7 (31.0-37.0) g/dL RDW 17.8 H (11.5-15.5) % Plt Count 166 (150-450) k/uL Neutrophils % 69 % Lymphocytes % 18 % Monocytes % 8 % Eosinophils % 2 % Basophils % 1 % Neutrophils # 4.7 (1.3-7.7) k/uL Lymphocytes # 1.2 (1.0-4.8) k/uL Monocytes # 0.6 (0-1.0) k/uL Eosinophils # 0.1 (0-0.7) k/uL Basophils # 0.0 (0-0.2) k/uL Hypochromasia Moderate Anisocytosis Slight Microcytosis Slight PT (9.0-12.0) sec INR (<1.2) APTT (22.0-30.0) sec Sodium 137 (137-145) mmol/L Potassium 3.5 (3.5-5.1) mmol/L Chloride 105 (98-107) mmol/L Carbon Dioxide 25 (22-30) mmol/L Anion Gap 7 mmol/L BUN 11 (7-17) mg/dL Creatinine 1.00 (0.52-1.04) mg/dL Est GFR (CKD-EPI)AfAm 70 (>60 ml/min/1.73 sqM) Est GFR (CKD-EPI)NonAf 61 (>60 ml/min/1.73 sqM) Glucose 125 H (74-99) mg/dL Calcium 8.6 (8.4-10.2) mg/dL Total Bilirubin 2.2 H (0.2-1.3) mg/dL AST 70 H (14-36) U/L ALT 55 H (9-52) U/L Alkaline Phosphatase 303 H (38-126) U/L Ammonia (<30) umol/L Total Creatine Kinase 84 (30-135) U/L CK-MB (CK-2) 1.3 (0.0-2.4) ng/mL CK-MB (CK-2) Rel Index 1.5 Troponin I <0.012 (0.000-0.034) ng/mL Total Protein 7.7 (6.3-8.2) g/dL Albumin 3.3 L (3.5-5.0) g/dL Urine Color Urine Appearance (Clear) Urine pH (5.0-8.0) Ur Specific [place] (1.001-1.035) Urine Protein (Negative) Urine Glucose (UA) (Negative) Urine Ketones (Negative) Urine Blood (Negative) Urine Nitrite (Negative) Urine Bilirubin (Negative) Urine Urobilinogen (<2.0) mg/dL Ur Leukocyte Esterase (Negative) 01/06/18 01/06/18 01/06/18 Range/Units 17:50 21:05 21:05 WBC (3.8-10.6) k/uL RBC (3.80-5.40) m/uL Hgb (11.4-16.0) gm/dL Hct (34.0-46.0) % MCV (80.0-100.0) fL MCH (25.0-35.0) pg MCHC (31.0-37.0) g/dL RDW (11.5-15.5) % Plt Count (150-450) k/uL Neutrophils % % Lymphocytes % % Monocytes % % Eosinophils % % Basophils % % Neutrophils # (1.3-7.7) k/uL Lymphocytes # (1.0-4.8) k/uL Monocytes # (0-1.0) k/uL Eosinophils # (0-0.7) k/uL Basophils # (0-0.2) k/uL Hypochromasia Anisocytosis Microcytosis PT 11.4 (9.0-12.0) sec INR 1.2 H (<1.2) APTT 26.1 (22.0-30.0) sec Sodium (137-145) mmol/L Potassium (3.5-5.1) mmol/L Chloride (98-107) mmol/L Carbon Dioxide (22-30) mmol/L Anion Gap mmol/L BUN (7-17) mg/dL Creatinine (0.52-1.04) mg/dL Est GFR (CKD-EPI)AfAm (>60 ml/min/1.73 sqM) Est GFR (CKD-EPI)NonAf (>60 ml/min/1.73 sqM) Glucose (74-99) mg/dL Calcium (8.4-10.2) mg/dL Total Bilirubin (0.2-1.3) mg/dL AST (14-36) U/L ALT (9-52) U/L Alkaline Phosphatase (38-126) U/L Ammonia 49 H (<30) umol/L Total Creatine Kinase (30-135) U/L CK-MB (CK-2) (0.0-2.4) ng/mL CK-MB (CK-2) Rel Index Troponin I (0.000-0.034) ng/mL Total Protein (6.3-8.2) g/dL Albumin (3.5-5.0) g/dL Urine Color Yellow Urine Appearance Clear (Clear) Urine pH 5.5 (5.0-8.0) Ur Specific [place] 1.009 (1.001-1.035) Urine Protein Negative (Negative) Urine Glucose (UA) Negative (Negative) Urine Ketones Negative (Negative) Urine Blood Negative (Negative) Urine Nitrite Negative (Negative) Urine Bilirubin Negative (Negative) Urine Urobilinogen 6.0 (<2.0) mg/dL Ur Leukocyte Esterase Negative (Negative) - Radiology Data Radiology results: report reviewed Chest x-ray impression: Normal chest. CT brain and C-spine without contrast impression: Negative computed tomography scan of the brain. Spondylotic changes in the mid and lower cervical spine. No fracture. Disposition Clinical Impression: Weakness, Fall Disposition: HOME SELF-CARE Condition: Good Instructions: Weakness (ED), Fall Prevention (ED) Additional Instructions: Please follow up with primary care provider within 1-2 days. Return to emergency department if symptoms should worsen or any concerns arise. Is patient prescribed a controlled substance at d/c from ED?: No Referrals: Raina Ybarra DO [Primary Care Provider] - 1-2 days Time of Disposition: 22:14
[2018-01-06 21:23] LABS: Appearance,Urine Clear (Clear); Bilirubin,Urine Negative (Negative); Blood,Urine Negative (Negative); Color,Urine Yellow; Glucose,Urine (UA) Negative (Negative); Ketones,Urine Negative (Negative); Leukocyte Esterase,Urine Negative (Negative); Nitrite,Urine Negative (Negative); PH, Urine 5.5 (5.0-8.0); Protein,Urine Negative (Negative); Specific Gravity,Urine 1.009 (1.001-1.035)
--- NOTE | 2018-01-06 21:44 | XR ---
EXAMINATION TYPE: XR chest 2V DATE OF EXAM: 01/06/2018 COMPARISON: NONE HISTORY: Weakness TECHNIQUE: Frontal and lateral views of the chest are obtained. FINDINGS: Heart and mediastinum are normal. Lungs are clear. Diaphragm is normal. Bony thorax is int act. IMPRESSION: Normal chest. .
--- NOTE | 2018-01-06 21:46 | CT ---
EXAMINATION TYPE: CT brain popeye ngo DATE OF EXAM: 01/06/2018 COMPARISON: None HISTORY: Weakness, head injury from fall. CT DLP: 1399.8 mGycm Automated exposure control for dose reduction was used. TECHNIQUE: CT scan of the head and cervical spine are performed without contrast. FINDINGS: Ventricles and sulci are fairly normal for age. There is no mass effect nor midline shift . There is no sign of intracranial hemorrhage. The calvarium is intact. Cervical vertebra have fairly normal alignment. There is narrowing and spur formation at C4-5 C5-6 C6 -7. The posterior elements are intact. Facet joints are intact. Skull base is intact. IMPRESSION: Negative CT scan of the brain. Spondylotic changes in the mid and lower cervical spine. No fracture.
[2018-01-06 22:39] VITALS: BP 118/58; PULSE 68; TEMP 97.3
== END 2018-01-06 22:49 | disposition home or self-care (01) ==
LOC: EC 15:55
DX: R53.1 Weakness (principal); R51 Headache; R41.0 Disorientation, unspecified; M79.7 Fibromyalgia; K21.9 Gastro-esophageal reflux disease without esophagitis; I10 Essential (primary) hypertension; M19.90 Unspecified osteoarthritis, unspecified site; F32.9 Major depressive disorder, single episode, unspecified; M06.9 Rheumatoid arthritis, unspecified; Z87.891 Personal history of nicotine dependence; Z90.49 Acquired absence of other specified parts of digestive tract; Z90.710 Acquired absence of both cervix and uterus; Z98.890 Other specified postprocedural states; Z79.899 Other long term (current) drug therapy; Z88.8 Allergy status to other drugs, medicaments and biological substances; Z91.040 Latex allergy status; W18.12XA Fall from or off toilet with subsequent striking against object, initial encounter; W01.198A Fall on same level from slipping, tripping and stumbling with subsequent striking against other object, initial encounter
CPT/HCPCS: 36415; 70450; 71046; 72125; 80053; 81003; 82140; 82550; 82553; 84484; 85025; 85610; 85730; 93005; 99285

== ENCOUNTER → 2018-01-14 | Outpatient (CLI) | payer MEDICAID ==
[2018-01-14 19:20] LABS: EBV-VCA (IgG) >8.0 AI
== END | disposition home or self-care (01) ==
LOC: LABWHC1 13:29
PROVIDERS: ATTEND Physician Assistant
DX: R53.82 Chronic fatigue, unspecified (principal)
CPT/HCPCS: 36415; 86618; 86663; 86664; 86665

== ENCOUNTER → 2018-01-28 | Outpatient (CLI) | payer MEDICAID ==
--- NOTE | 2018-01-28 23:45 | CONS ---
CONSULTATION REASON FOR CONSULTATION: Sleep apnea. 62-year-old female patient was diagnosed having obstructive sleep apnea through [facility] many years back. The patient comes in for further advice regarding treatment. She brings in with her two machines, one of them is a Rezmet S9 elite CPAP unit which is set at a pressure of 16 cm of water. The other one is a Rezmet S9 VPAP machine which is set at a CPAP of 14 and the machine has a capacity to work as a BiPAP and the setting on the machine is 22/18. The patient tells me that she was able to tolerate both of these machines. She was working with in the past and ultimately her sleep doctor and she did not have any further advice regarding treatment. She is coming in quite symptomatic. She has loud snoring. According to the she quits breathing at night and she has got fatigue and tiredness during the day. She goes to bed around 10:00 p.m., wakes up at 5:00 a.m. in the morning. She has excessive fatigue and sleepiness throughout the day. She also has a component of insomnia. She has fibromyalgia and chronic pain syndrome. Current Lancaster score is 7. She is very much interested in going back to her CPAP treatment. The patient sleeps on her side. It takes her sometimes more than 20 minutes to fall asleep. She drinks 4 glasses of caffeinated beverages a day. Her weight has been stable. She wakes up every couple of hours. At least she can recall 4 to 5 time arousals throughout the night. She is quite restless at night. She has anxiety chronic and occasional panic attacks. PAST MEDICAL HISTORY: 1. Obstructive sleep apnea. 2. Depression. 3. Hypertension. 4. Osteoarthritis. 5. Fibromyalgia. 6. History of alcoholic liver cirrhosis. PAST SURGICAL HISTORY: Includes hysterectomy, rectocele surgery, right knee arthroscopy and cholecystectomy. DRUG ALLERGIES: LATEX AND IGNACIO INHIBITORS. OUTPATIENT MEDICATION LIST: Includes Paxil 20 daily, potassium 10 mEq a day, hydrochlorothiazide 25 mg p.o. daily, omeprazole 20 mg p.o. daily. Losartan 100 daily, Wellbutrin 300 mg p.o. daily, Primidone 50 mg p.o. daily, Abilify 5 mg p.o. per day, multivitamin 1 tablet a day and propranolol 20 mg twice a day and gabapentin 400 mg 3 times a day and Cymbalta 600 mg p.o. daily. SOCIAL HISTORY: The patient is a nonsmoker. No history of alcohol. No history of IV drugs. FAMILY HISTORY: Negative for sleep apnea. REVIEW OF SYSTEMS: 12-point review of system was done. Positive findings all mentioned above in the history of present illness. She has multiple complaints including chronic pain, chronic fatigue, chronic memory problems., chronic aspiration problems. Chronic sleepiness and tiredness and fatigue. No sleep paralysis or cataplexy. No motor vehicle accident because of feeling drowsy or sleepy. PHYSICAL EXAMINATION: Her current vitals BP is 135/62, pulse 72, respirations 16, temperature 99.4, saturation 94% on room air. Weight is 198. Height is 5 feet 1 inch. Lancaster score of 7, BMI 36.8. Neck size is 16.5 inches. General appearance: Calm, comfortable. Head is atraumatic, normocephalic. NECK: Supple. There is no JVD. No goiter or neck mass. LUNGS: Clear to auscultation. HEART: Sounds regular rhythm. Normal S1, S2. No S3, S4. No murmurs. ABDOMEN: Soft, nontender. No organomegaly. EXTREMITIES: No edema. No cyanosis or clubbing. NEUROLOGIC: Alert and oriented x3. No focal neurological deficits. IMPRESSION: 1. Obstructive sleep apnea coming in for evaluation. Exact diagnostic and therapeutic circumstances not clear to me. The patient brings in with 2 different units, 1 of them is a CPAP and one is a VPAP. Original diagnosis was established through [facility] in [place]. 2. Chronic fatigue and hypersomnia. 3. Alcoholic liver cirrhosis. 4. Fibromyalgia. 5. Osteoarthritis. 6. Hypertension. 7. Depression. PLAN: 1. I am going to ask the records from [facility] in terms of her original polysomnogram and subsequent evaluation that was done, including the CPAP and BiPAP titration. 2. I asked her to restart using the CPAP at the 12 cm of water. This is a this is obviously an arbitrary pressure that needs to be adjusted at the later stage. I also gave the patient Gayle View full-face mask along with the tubing to start treatment. 3. She will see me back in 2-3 weeks time. Hopefully by that time, I will be able to get hold of the sleep studies. I will also make adjustments and also make recommendations accordingly. She may ultimately need reevaluation probably a titration to make her treatment was successful. We will continue to follow. JAMES / GISSELN: [id number] /
== END | disposition home or self-care (01) ==
LOC: SLEEP 14:51
PROVIDERS: ATTEND Internal Medicine Critical Care Medicine
DX: G47.33 Obstructive sleep apnea (adult) (pediatric) (principal); R53.82 Chronic fatigue, unspecified; K70.30 Alcoholic cirrhosis of liver without ascites; M79.7 Fibromyalgia; M19.90 Unspecified osteoarthritis, unspecified site; I10 Essential (primary) hypertension; F32.9 Major depressive disorder, single episode, unspecified; Z90.710 Acquired absence of both cervix and uterus; Z90.49 Acquired absence of other specified parts of digestive tract; Z98.890 Other specified postprocedural states; Z91.040 Latex allergy status; Z79.899 Other long term (current) drug therapy
CPT/HCPCS: 99211

== ENCOUNTER → 2018-02-11 | Outpatient (CLI) | payer MEDICAID ==
--- NOTE | 2018-02-11 11:38 | US ---
EXAMINATION TYPE: US liver DATE OF EXAM: 02/11/2018 COMPARISON: NONE CLINICAL HISTORY: K74.60 Unspecified Cirrhosis of Liver. GB removed x 5-6 years ago. No pain. Leg e jenniffer. EXAM MEASUREMENTS: Liver Length: 16.4 cm CBD: 0.8 cm CHD: 1.0 cm Right Kidney: 10.2 x 6.2 x 6.1 cm Pancreas: Echogenic Liver: Heterogenous. Appears lobular. Prominent lobularity seen near right kidney. Gallbladder: Surgically absent Evidence for sonographic Dowling's sign: neg CBD: wnl CHD: upper limits of normal Right Kidney: There is normal cortical medullary differentiation , No hydronephrosis or cortical mass IMPRESSION: Postcholecystectomy. Heterogeneous echotexture within the liver, lobular contour similar to prior exam, findings could be due to hepatocellular disease, cirrhosis. Dilated extrahepatic bilia ry duct may be due to postcholecystectomy change.
== END ==
LOC: RADUSWWP 08:53
PROVIDERS: ATTEND Internal Medicine Gastroenterology
DX: K74.60 Unspecified cirrhosis of liver (principal); Z90.49 Acquired absence of other specified parts of digestive tract
CPT/HCPCS: 76705

== ENCOUNTER → 2018-02-21 | Outpatient (CLI) | payer MEDICAID ==
[2018-02-21 10:57] LABS: Anisocytosis Slight; Basophils % (A) 1 %; Eosinophils # (A) 0.1 k/uL (0-0.7); Eosinophils % (A) 3 %; HCT 36.2 % (34.0-46.0); HGB 11.1 gm/dL (11.4-16.0); Hypochromasia Slight; Lymphocytes # (A) 0.8 k/uL (1.0-4.8); Lymphocytes % (A) 19 %; MCH 28.9 pg (25.0-35.0); MCHC 30.6 g/dL (31.0-37.0); Mean Platelet Volume 7.9; Monocytes # (A) 0.3 k/uL (0-1.0); Monocytes % (A) 7 %; Neutrophils # (A) 2.8 k/uL (1.3-7.7); Neutrophils % (A) 69 %; Platelet Count 102 k/uL (150-450); RBC 3.84 m/uL (3.80-5.40); RDW 18.6 % (11.5-15.5); Reticulocyte % 2.5 % (0.5-2.0); WBC 4.1 k/uL (3.8-10.6)
[2018-02-21 11:06] LABS: MCV 94.3 fL (80.0-100.0)
[2018-02-21 11:38] LABS: ALT 61 U/L (9-52); AST 77 U/L (14-36); Albumin 3.1 g/dL (3.5-5.0); Alkaline Phosphatase 263 U/L (38-126); Anion Gap 6 mmol/L; Blood Urea Nitrogen 15 mg/dL (7-17); Calcium 9.3 mg/dL (8.4-10.2); Carbon Dioxide 28 mmol/L (22-30); Chloride 106 mmol/L (98-107); Glucose 123 mg/dL (74-99); Potassium 4.1 mmol/L (3.5-5.1); Sodium 140 mmol/L (137-145); Total Bilirubin 1.9 mg/dL (0.2-1.3); Total Protein 7.7 g/dL (6.3-8.2)
[2018-02-21 12:41] LABS: Erythrocyte Sedimentation Rate 58 mm/hr (0-20)
[2018-02-21 17:08] LABS: Iron Saturation 34.03 (12.00-45.00)
== END | disposition home or self-care (01) ==
LOC: LABWHC1 10:29
PROVIDERS: ATTEND Internal Medicine Hematology & Oncology
DX: D50.0 Iron deficiency anemia secondary to blood loss (chronic) (principal)
CPT/HCPCS: 36415; 80053; 82607; 82728; 82747; 83540; 83550; 83921; 85025; 85045; 85652

== ENCOUNTER → 2018-03-11 | Outpatient (CLI) | payer MEDICAID ==
--- NOTE | 2018-03-11 14:43 | PN ---
PROGRESS NOTE This is a 62-year-old female patient, who is being seen in [facility]up [facility]. I saw her in consultation on 01/28/2018. Back then, the patient had her initial evaluation was done at [facility] and she was under the care of [facility]. She did not have good success with her CPAP therapy and the patient came to me for further followup. I was able to repeat the patient's polysomnogram that was done at [facility] and based on the sleep study. This was done, 2011 the patient had an AHI of 29.9, consistent with severe disease. She is quite symptomatic hypersomnia and sleepy and she had mild periodic limb movements. She also has chronic alcoholic liver cirrhosis, fibromyalgia, osteoarthritis, hypertension, history of depression. She was given BiPAP at various pressures and I noted that she was at the very high pressures of 22/18 cm of water which ultimately failed. The patient was initially given CPAP at a pressure of 14 and subsequently she was switched to a BiPAP and all treatment failed. On today's evaluation, I am seeing this patient for a followup. I decided to restart her on a CPAP pressure of 12 cm of water and this was an arbitrary CPAP pressure to start with and I gave the patient Gayle View full- face mask. On today's evaluation, I noted that the patient is unable to use the CPAP machine. For various reasons. Her ability to put the mask on and off. He is extremely poor. She is quite lethargic and somnolent and I think this is underlying component of encephalopathy probably related to liver disease. She is getting help from her who was putting on her on and off for mask; however, even at a pressure of 12 cm of water, the patient is unable to tolerate the treatment. Upon looking at this matter further, I think this patient would be better off with a nose mask rather than a fullface mask. I decided to go one step further and try the patient on nose mask, prior to committing her to another CPAP titration. If all measures fail, the patient will need a followup CPAP titration here in my office. PHYSICAL EXAMINATION: BP is 156/69, pulse 62, respirations 16, temperature 98.3, saturation 95% on room air. Weight is 202, height is 5 feet 1 inch, BMI is 37.9. GENERAL APPEARANCE: Calm, comfortable. Head is atraumatic, normocephalic. Neck is supple. Mallampati class IV. There is no goiter, neck mass. Lungs are clear to auscultation. Heart sounds regular rate and rhythm. Normal S1, S2. No S3, S4. No murmurs. Abdomen is soft, nontender. No organomegaly. EXTREMITIES: No edema. No cyanosis or clubbing. NEUROLOGIC: The patient is somnolent and sleepy. Awake, moving all 4 extremities without any limitation. IMPRESSION: 1. Obstructive sleep apnea with baseline AHI of 29.9. Based on the sleep study that was done, 2011. 2. Excessive daytime sleepiness. 3. Hypersomnia. 4. Hypertension. 5. Depression. 6. History of alcoholic liver cirrhosis. 7. Fibromyalgia. 8. Osteoarthritis. PLAN: 1. I offered this patient AirFit N20 nose mask. 2. Dropped a CPAP pressure of 8-10 cm of water. 3. Allowed the patient to use her CPAP for another month and see back for followup. If all measures fail, will set up this patient for a CPAP titration. MMODL / IJN: [id number] /
== END | disposition home or self-care (01) ==
LOC: SLEEP 13:21
PROVIDERS: ATTEND Internal Medicine Critical Care Medicine
DX: G47.33 Obstructive sleep apnea (adult) (pediatric) (principal); I10 Essential (primary) hypertension; F32.9 Major depressive disorder, single episode, unspecified; M79.7 Fibromyalgia; M19.90 Unspecified osteoarthritis, unspecified site

== ENCOUNTER 2018-03-24 21:11 | Emergency (ER) | payer MEDICAID ==
[2018-03-24 21:27] VITALS: RESP 20; TEMP 97.7
[2018-03-24] MEDS ORDERED: SODIUM CHLORIDE 0.9% 1,000 ML IV STA ×2 (21:32→22:13)
[2018-03-24] MEDS ORDERED: PANTOPRAZOLE 40 MG/10 ML VIAL IVP STA (21:34)
[2018-03-24 21:45] LABS: Glucose,Whole Blood 263 mg/dL (75-99)
[2018-03-24 22:01] LABS: Anisocytosis Slight; Basophils # (A) 0.1 k/uL (0-0.2); Basophils % (A) 1 %; Eosinophils # (A) 0.2 k/uL (0-0.7); Eosinophils % (A) 2 %; HCT 28.9 % (34.0-46.0); HGB 9.3 gm/dL (11.4-16.0); Hypochromasia Slight; Lymphocytes # (A) 1.8 k/uL (1.0-4.8); Lymphocytes % (A) 20 %; MCH 30.6 pg (25.0-35.0); MCHC 32.2 g/dL (31.0-37.0); Mean Platelet Volume 8.2; Monocytes # (A) 0.4 k/uL (0-1.0); Monocytes % (A) 5 %; Neutrophils % (A) 70 %; Platelet Count 207 k/uL (150-450); RBC 3.04 m/uL (3.80-5.40); RDW 16.2 % (11.5-15.5); WBC 8.6 k/uL (3.8-10.6)
[2018-03-24 22:09] LABS: Lactic Acid, Venous 1.7 mmol/L (0.7-2.0)
[2018-03-24 22:10] LABS: Albumin 2.7 g/dL (3.5-5.0); Calcium 8.2 mg/dL (8.4-10.2); Magnesium 2.1 mg/dL (1.6-2.3); Phosphorus 3.6 mg/dL (2.5-4.5); Potassium 5.5 mmol/L (3.5-5.1); Total Bilirubin 1.5 mg/dL (0.2-1.3); Total Protein 6.6 g/dL (6.3-8.2)
[2018-03-24] MEDS ORDERED: LACTULOSE 20 GM/30 ML CUP PO ONE (22:13)
[2018-03-24] MEDS ORDERED: SODIUM CHLORIDE 0.9% 500 ML IV STA (22:13)
--- NOTE | 2018-03-24 22:13 | ED ---
Weakness HPI - General Chief complaint: Weakness Stated complaint: GI Bleed/weakness Time Seen by Provider: 03/24/18 21:32 Source: patient, RN notes reviewed, old records reviewed Mode of arrival: wheelchair Limitations: altered mental status, physical limitation - History of Present Illness Initial comments: This is a 62-year-old female the ER with significant weakness and altered mental state as well as GI bleed. Patient has significant medical history including cirrhosis. Denies drinking or alcohol, denies drug abuse. Patient coming in with confusion. Patient having blood in her stools. Mother states patient does not take lactulose as directed. Patient has been acting a little bit confused all day and symptoms getting worse and worse throughout the day. No recent travel history, patient was feeling fine going into with last night, patient is unable with history secondary to altered mental state MD Complaint: generalized weakness, lack of energy -: hour(s) Location: generalized Quality: constant Associated Symptoms: confusion, dark stools - Related Data Home Medications Medication Instructions Recorded Confirmed buPROPion XL [Wellbutrin XL] 300 mg PO DAILY 02/13/16 03/24/18 DULoxetine HCL [Cymbalta] 60 mg PO HS 11/02/16 03/24/18 Gabapentin [Neurontin] 800 mg PO HS 11/02/16 03/24/18 Hydrochlorothiazide [Hydrodiuril] 25 mg PO DAILY 11/02/16 03/24/18 Multivitamins, Thera [Multivitamin 1 tab PO DAILY 11/02/16 03/24/18 (formulary)] Potassium Chloride [Klor-Con 10] 10 meq PO DAILY 11/02/16 03/24/18 Losartan Potassium 100 mg PO DAILY 11/30/16 03/24/18 Ergocalciferol [Vitamin D2] 50,000 unit PO HUFF 05/15/17 03/24/18 Lactulose [Constulose] 20 mg PO QAM PRN 05/15/17 03/24/18 Primidone [Mysoline] 50 mg PO DAILY 05/15/17 03/24/18 Omeprazole [PriLOSEC] 20 mg PO DAILY 01/06/18 03/24/18 Propranolol HCl 20 mg PO BID 01/06/18 03/24/18 ARIPiprazole [Abilify] 5 mg PO DAILY 03/24/18 03/24/18 Butalb/Acetaminophen/Caffeine 1 - 2 cap PO DAILY PRN 03/24/18 03/24/18 [Fioricet 50-300-40 mg Capsule] Carbidopa/Levodopa [Sinemet 25-100 0.5 tab PO BID 03/24/18 03/24/18 mg] Ferrous Sulfate [Slow Fe] 142 mg PO HS 03/24/18 03/24/18 Allergies Allergy/AdvReac Type Severity Reaction Status Date / Time latex Allergy Severe Rash/Hives Verified 03/24/18 21:33 IGNACIO Inhibitors AdvReac Cough Verified 03/24/18 21:33 Review of Systems ROS Statement: Those systems with pertinent positive or pertinent negative responses have been documented in the HPI. ROS Other: All systems not noted in ROS Statement are negative. Past Medical History Past Medical History: Blood Disorder, Fibromyalgia, GERD/Reflux, Hypertension, Liver Disease, Osteoarthritis (OA), Rheumatoid Arthritis (RA), Skin Disorder, Sleep Apnea/CPAP/BIPAP Additional Past Medical History / Comment(s): herpes zoster, rosacea, fatty liver/cirrhosis, not using CPAP. Anemia d/t cirrhosis. Blood transfusion. BILATERAL KNEES TO FEET EDEMA. possible parkinsons History of Any Multi-Drug Resistant Organisms: None Reported Past Surgical History: Cholecystectomy, Hysterectomy, Orthopedic Surgery Additional Past Surgical History / Comment(s): rectocele/cystocele repair, arthroscopy rt knee, CATARACT RIGHT EYE 11/06/16. Past Anesthesia/Blood Transfusion Reactions: Previous Problems w/ Anesthesia Additional Past Anesthesia/Blood Transfusion Reaction / Comment(s): SHE STATES "IT'S A MEDICINE THEY DON'T USE ANY MORE"-many yrs ago hard hard time coming out and. no problems with recent surgeries Past Psychological History: Depression Smoking Status: Former smoker Past Alcohol Use History: None Reported Past Drug Use History: None Reported - Past Family History Mother Family Medical History: No Reported History Father Family Medical History: COPD General Exam Limitations: altered mental status General appearance: alert, in no apparent distress, lethargic Head exam: Present: atraumatic, normocephalic, normal inspection Eye exam: Present: normal appearance, PERRL, EOMI. Absent: scleral icterus, conjunctival injection, periorbital swelling ENT exam: Present: normal exam, mucous membranes moist Neck exam: Present: normal inspection. Absent: tenderness, meningismus, lymphadenopathy Respiratory exam: Present: normal lung sounds bilaterally. Absent: respiratory distress, wheezes, rales, rhonchi, stridor Cardiovascular Exam: Present: regular rate, normal rhythm, normal heart sounds. Absent: systolic murmur, diastolic murmur, rubs, gallop, clicks GI/Abdominal exam: Present: soft, normal bowel sounds. Absent: distended, tenderness, guarding, rebound, rigid Extremities exam: Present: normal inspection, full ROM, normal capillary refill. Absent: tenderness, pedal edema, joint swelling, calf tenderness Back exam: Present: normal inspection Neurological exam: Present: alert, oriented X3, CN II-XII intact Psychiatric exam: Present: normal affect, normal mood Skin exam: Present: warm, dry, intact, normal color. Absent: rash Course Vital Signs 03/24/18 03/24/18 21:22 23:05 Temperature 97.7 F Pulse Rate 66 67 Respiratory 20 20 Rate Blood Pressure 88/49 104/51 O2 Sat by Pulse 100 99 Oximetry - Reevaluation(s) Reevaluation #1: 03/24/18 22:12 Patient's medical record is reviewed Reevaluation #2: 03/24/18 22:12 Patient showing no real clinical improvement here in the emergency room, significantly altered Reevaluation #3: 03/24/18 23:20 Family spoken with an update regarding results of CT. Acceptable for transfer EKG Findings - EKG Comments: EKG Findings:: EKG shows sinus rhythm rate of 69, OH 134, QRS 90, QTc 501 Medical Decision Making - Medical Decision Making 52 female with significant medical history, patient's medical history cirrhosis patient severe altered mental state currently. Patient severe hyperammonemia , patient also has history of recent falls. Patient's brain CAT scan does show positive intracranial hemorrhage. Patient be transferred to, call for care under surgeon - Lab Data Result diagrams: 03/24/18 21:50 03/24/18 21:50 Lab Results 03/24/18 03/24/18 03/24/18 Range/Units 21:41 21:50 21:50 WBC (3.8-10.6) k/uL RBC (3.80-5.40) m/uL Hgb (11.4-16.0) gm/dL Hct (34.0-46.0) % MCV (80.0-100.0) fL MCH (25.0-35.0) pg MCHC (31.0-37.0) g/dL RDW (11.5-15.5) % Plt Count (150-450) k/uL Neutrophils % % Lymphocytes % % Monocytes % % Eosinophils % % Basophils % % Neutrophils # (1.3-7.7) k/uL Lymphocytes # (1.0-4.8) k/uL Monocytes # (0-1.0) k/uL Eosinophils # (0-0.7) k/uL Basophils # (0-0.2) k/uL Hypochromasia Anisocytosis PT (9.0-12.0) sec INR (<1.2) APTT (22.0-30.0) sec Sodium 137 (137-145) mmol/L Potassium 5.5 H (3.5-5.1) mmol/L Chloride 107 (98-107) mmol/L Carbon Dioxide 24 (22-30) mmol/L Anion Gap 6 mmol/L BUN 28 H (7-17) mg/dL Creatinine 1.05 H (0.52-1.04) mg/dL Est GFR (CKD-EPI)AfAm 65 (>60 ml/min/1.73 sqM) Est GFR (CKD-EPI)NonAf 57 (>60 ml/min/1.73 sqM) Glucose 256 H (74-99) mg/dL POC Glucose (mg/dL) 263 H (75-99) mg/dL POC Glu [employer] ID Nayely Pyle Plasma Lactic Acid Torsten (0.7-2.0) mmol/L Calcium 8.2 L (8.4-10.2) mg/dL Phosphorus 3.6 (2.5-4.5) mg/dL Magnesium 2.1 (1.6-2.3) mg/dL Total Bilirubin 1.5 H (0.2-1.3) mg/dL AST 65 H (14-36) U/L ALT 51 (9-52) U/L Alkaline Phosphatase 241 H (38-126) U/L Ammonia (<30) umol/L Total Creatine Kinase (30-135) U/L CK-MB (CK-2) (0.0-2.4) ng/mL CK-MB (CK-2) Rel Index Troponin I (0.000-0.034) ng/mL Total Protein 6.6 (6.3-8.2) g/dL Albumin 2.7 L (3.5-5.0) g/dL Blood Type B Positive Blood Type Recheck No Antibody Screen POSITIVE Spec Expiration Date 03/27/2018234903/24/18 03/24/18 03/24/18 Range/Units 21:50 21:50 21:50 WBC 8.6 (3.8-10.6) k/uL RBC 3.04 L (3.80-5.40) m/uL Hgb 9.3 L (11.4-16.0) gm/dL Hct 28.9 L (34.0-46.0) % MCV 95.0 (80.0-100.0) fL MCH 30.6 (25.0-35.0) pg MCHC 32.2 (31.0-37.0) g/dL RDW 16.2 H (11.5-15.5) % Plt Count 207 (150-450) k/uL Neutrophils % 70 % Lymphocytes % 20 % Monocytes % 5 % Eosinophils % 2 % Basophils % 1 % Neutrophils # 6.0 (1.3-7.7) k/uL Lymphocytes # 1.8 (1.0-4.8) k/uL Monocytes # 0.4 (0-1.0) k/uL Eosinophils # 0.2 (0-0.7) k/uL Basophils # 0.1 (0-0.2) k/uL Hypochromasia Slight Anisocytosis Slight PT (9.0-12.0) sec INR (<1.2) APTT (22.0-30.0) sec Sodium (137-145) mmol/L Potassium (3.5-5.1) mmol/L Chloride (98-107) mmol/L Carbon Dioxide (22-30) mmol/L Anion Gap mmol/L BUN (7-17) mg/dL Creatinine (0.52-1.04) mg/dL Est GFR (CKD-EPI)AfAm (>60 ml/min/1.73 sqM) Est GFR (CKD-EPI)NonAf (>60 ml/min/1.73 sqM) Glucose (74-99) mg/dL POC Glucose (mg/dL) (75-99) mg/dL POC Glu [employer] ID Plasma Lactic Acid Torsten 1.7 (0.7-2.0) mmol/L Calcium (8.4-10.2) mg/dL Phosphorus (2.5-4.5) mg/dL Magnesium (1.6-2.3) mg/dL Total Bilirubin (0.2-1.3) mg/dL AST (14-36) U/L ALT (9-52) U/L Alkaline Phosphatase (38-126) U/L Ammonia 210 H (<30) umol/L Total Creatine Kinase 73 (30-135) U/L CK-MB (CK-2) 1.8 (0.0-2.4) ng/mL CK-MB (CK-2) Rel Index 2.5 Troponin I <0.012 (0.000-0.034) ng/mL Total Protein (6.3-8.2) g/dL Albumin (3.5-5.0) g/dL Blood Type Blood Type Recheck Antibody Screen Spec Expiration Date 03/24/18 Range/Units 21:50 WBC (3.8-10.6) k/uL RBC (3.80-5.40) m/uL Hgb (11.4-16.0) gm/dL Hct (34.0-46.0) % MCV (80.0-100.0) fL MCH (25.0-35.0) pg MCHC (31.0-37.0) g/dL RDW (11.5-15.5) % Plt Count (150-450) k/uL Neutrophils % % Lymphocytes % % Monocytes % % Eosinophils % % Basophils % % Neutrophils # (1.3-7.7) k/uL Lymphocytes # (1.0-4.8) k/uL Monocytes # (0-1.0) k/uL Eosinophils # (0-0.7) k/uL Basophils # (0-0.2) k/uL Hypochromasia Anisocytosis PT 11.9 (9.0-12.0) sec INR 1.3 H (<1.2) APTT 27.6 (22.0-30.0) sec Sodium (137-145) mmol/L Potassium (3.5-5.1) mmol/L Chloride (98-107) mmol/L Carbon Dioxide (22-30) mmol/L Anion Gap mmol/L BUN (7-17) mg/dL Creatinine (0.52-1.04) mg/dL Est GFR (CKD-EPI)AfAm (>60 ml/min/1.73 sqM) Est GFR (CKD-EPI)NonAf (>60 ml/min/1.73 sqM) Glucose (74-99) mg/dL POC Glucose (mg/dL) (75-99) mg/dL POC Glu [employer] Operator ID Plasma Lactic Acid Torsten (0.7-2.0) mmol/L Calcium (8.4-10.2) mg/dL Phosphorus (2.5-4.5) mg/dL Magnesium (1.6-2.3) mg/dL Total Bilirubin (0.2-1.3) mg/dL AST (14-36) U/L ALT (9-52) U/L Alkaline Phosphatase (38-126) U/L Ammonia (<30) umol/L Total Creatine Kinase (30-135) U/L CK-MB (CK-2) (0.0-2.4) ng/mL CK-MB (CK-2) Rel Index Troponin I (0.000-0.034) ng/mL Total Protein (6.3-8.2) g/dL Albumin (3.5-5.0) g/dL Blood Type Blood Type Recheck Antibody Screen Spec Expiration Date - Radiology Data Radiology results: report reviewed (Chest x-ray negative CT brain positive for prior to intracranial hemorrhage), image reviewed Critical Care Time Critical Care Time: Yes Total Critical Care Time: 31 Disposition Clinical Impression: Anemia, GI bleed, Dehydration, Acute renal failure, Hyperammonemia, Hepatic encephalopathy, Intracranial hemorrhage Disposition: OTHER INSTITUTION NOT DEFINED Condition: Serious Is patient prescribed a controlled substance at d/c from ED?: No Referrals: Raina Ybarra DO [Primary Care Provider] - 1-2 days - Out of Hospital Transfer - Req. Specs Out of Hospital Transfer - Requested Specifics: Other Emergency Center ([facility])
[2018-03-24] MEDS ORDERED: ONDANSETRON 4 MG/2 ML VIAL IVP PRN (22:14)
[2018-03-24] MEDS ORDERED: ONDANSETRON 4 MG/2 ML VIAL IVP STA (22:14)
[2018-03-24 22:17] LABS: INR 1.3 (<1.2); Partial Thromboplastin Time 27.6 sec (22.0-30.0); Prothrombin Time 11.9 sec (9.0-12.0)
[2018-03-24 22:18] LABS: Creatine Kinase 73 U/L (30-135)
--- NOTE | 2018-03-24 22:23 | XR ---
EXAMINATION TYPE: XR chest 2V DATE OF EXAM: 03/24/2018 COMPARISON: 09/06/2017 HISTORY: Weakness TECHNIQUE: Frontal and lateral views of the chest are obtained. FINDINGS: There is poor inspiration. There is some atelectasis at the lung bases. There is mild pulm onary congestion. There are chest leads. IMPRESSION: Inspiration is much less than last exam. Mild heart failure is possible.
[2018-03-24 22:30] LABS: Creatine Kinase MB 1.8 ng/mL (0.0-2.4); Troponin I <0.012 ng/mL (0.000-0.034)
--- NOTE | 2018-03-24 23:12 | CT ---
EXAMINATION TYPE: CT brain wo con DATE OF EXAM: 03/24/2018 COMPARISON: 01/06/2018 HISTORY: Weakness, altered mental status CT DLP: 852 mGycm Automated exposure control for dose reduction was used. FINDINGS: Ventricles have normal size. There is no mass effect nor midline shift. There is a 15 mm rounded area of high attenuation at the left parietal convexity that is extra-axial and appears new compared to l ast exam. This is consistent with a small subdural hemorrhage. IMPRESSION: ACUTE FOCAL SUBDURAL HEMORRHAGE AT THE LEFT PARIETAL CONVEXITY. THIS IS NEW COMPARED TO LAST EXAM. TH IS IS PROBABLY RELATED TO A TEAR OF THE SAGITTAL SINUS VEIN. THIS EXAM WAS DISCUSSED WITH SIMONE Lemus AT 11:10 PM.
[2018-03-25 00:04] VITALS: BP 122/58; PULSE 68
[2018-03-25] MEDS ORDERED: LACTULOSE 20 GM/30 ML CUP PO SCH (09:00)
[2018-03-25] MEDS ORDERED: PANTOPRAZOLE 40 MG/10 ML VIAL IVP SCH (09:00)
== END 2018-03-25 00:40 | disposition short-term general hospital (02) ==
LOC: EC 21:11
DX: D64.9 Anemia, unspecified (principal); E86.0 Dehydration; N17.9 Acute kidney failure, unspecified; E72.20 Disorder of urea cycle metabolism, unspecified; I62.9 Nontraumatic intracranial hemorrhage, unspecified; K72.90 Hepatic failure, unspecified without coma; K92.1 Melena; I10 Essential (primary) hypertension; K21.9 Gastro-esophageal reflux disease without esophagitis; M79.7 Fibromyalgia; F32.9 Major depressive disorder, single episode, unspecified; Z87.891 Personal history of nicotine dependence; Z88.8 Allergy status to other drugs, medicaments and biological substances; Z91.040 Latex allergy status; Z79.899 Other long term (current) drug therapy; V29.9XXA Motorcycle rider (driver) (passenger) injured in unspecified traffic accident, initial encounter; Z90.49 Acquired absence of other specified parts of digestive tract
CPT/HCPCS: 36415; 93005; 86900; 86901; 80053; 82140; 82550; 82553; 83605; 83735; 84100; 84484; 85025; 85610; 85730; 86850; 86870; 86880; 71046; 70450; 99291; 96374; 96375; 96361 ×3; J2405; C9113